=== PATIENT | male | born 1970 | race Native Hawaiian/Other Pacific Islander ===

== ENCOUNTER 2019-06-08 06:28 | Emergency (ER) | payer BC, SELFPAY ==
--- NOTE | ~2019-06-08 | CT_ITS ---
EXAMINATION: CT abdomen pelvis w con DATE: 06/08/2019 07:58 INDICATION: Epigastric pain, pancreatitis, cholecystitis. TECHNIQUE: Computed tomography (CT) of the abdomen and pelvis was performed with 100 mL Omnipaque-350 intravenous contrast. Automated exposure control and iterative reconstruction technique were employe d. The dose-length product was 1042.62 mGy-cm. COMPARISON: None FINDINGS: Minimal discoid atelectasis in the right lower lobe. Heart size is normal. No pericardial or pleural effusion. 1.4 cm hemangioma at the dome of the liver which is hypoenhancing with peripheral discontig uous puddling of contrast. There are couple additional subtle subcentimeter hypoenhancing lesions whi ch are too small to definitively characterize most likely representing additional hemangiomas. Gallbl adder, spleen, pancreas, bilateral adrenal glands and kidneys are normal. Bowels including the append ix are normal. Bladder is normal. Small bilateral fat-containing inguinal hernias. No free intraperit carney gas or fluid. No pathologically enlarged abdominal or pelvic lymphadenopathy. Mild to moderate bilateral hip osteoarthritis. Ankylosis across the anteroinferior aspect of the bilateral sacroiliac joints. IMPRESSION: 1. No acute intra-abdominal/pelvic process. Reviewed, dictated and finalized at location A. [employer]
[2019-06-08 06:38] VITALS: BP 138/98; PULSE 88; RESP 15; TEMP 36.3; O2SAT 98
--- NOTE | 2019-06-08 07:10 | ED.GENADULT ---
HPI - General Adult General Chief complaint: Skin/Abscess/Foreign Body Stated complaint: tomato stuck in esophagus Time Seen by Provider: 06/08/19 06:39 Source: patient History of Present Illness HPI narrative: 48 years old white male history of GERD, esophageal dilatation, abdominal hernia repair, does not smoke and drinks occasionally presents with epigastric pain after eating a piece of tomato yesterday noon. Patient believes that the tomato stuck at the lower esophagus. Patient been able to drink and eat after that. Pain is aching, sometimes radiating to the mid of his back, patient denies any fever, chills, nausea or vomiting. Patient had history of esophageal obstruction required EGD. Patient supposed to be on PPI which he does not take. Related Data Allergies Allergy/AdvReac Type Severity Reaction Status Date / Time Penicillins Allergy Unknown Unknown Verified 06/08/19 06:42 Review of Systems Review of Systems: Narrative: CONSTITUTIONAL: Denies fever, chills, or sweats. EYES: Denies visual changes, redness, or discharge. ENT: Denies rhinorrhea, congestion, sore throat, or otalgia. CARDIOVASCULAR: Denies chest pain, palpitations, or edema. RESPIRATORY: Denies cough or dyspnea. GASTROINTESTINAL: Epigastric pain GENITOURINARY: Denies dysuria or hematuria. SKIN: Denies rash or itching. MUSCULOSKELETAL: Denies back pain, joint pain, or myalgia. NEUROLOGIC: Denies headache, numbness, or weakness. PSYCHIATRIC: Denies anxiety or depression. PMFSH Social History Social History Smoking status: Never smoker Alcohol intake: never Exam Narrative: Exam Narrative: General appearance: Well-developed, well-nourished Skin: Normal color Head: Normocephalic, nontraumatic Eyes: Clear conjunctiva ENT: Oropharynx normal, ears normal, nose normal Neck: Supple, nontender Chest and respiratory: Airway patent, no respiratory distress, no accessory muscle use Heart: Regular rate/rhythm Abdomen: Soft, mild tenderness epigastric area, no guarding or rebound, no organomegaly, quiet bowel sounds Vascular: Normal peripheral pulses, normal capillary refill. Musculoskeletal: Normal range of motion, nontender back Neurologic: Alert and oriented ?3, [employer] is normal as tested, no gross motor deficit Course Course Emergency Course: Unchanged Vital Signs Vital signs: Vital Signs Temperature 36.3 C L 06/08/19 06:38 Pulse Rate 88 06/08/19 06:38 Respiratory Rate 15 06/08/19 06:38 Blood Pressure 138/98 H 06/08/19 06:38 Pulse Oximetry 98 06/08/19 06:38 Temperature 36.3 C L 06/08/19 06:38 Pulse Rate 88 06/08/19 06:38 Respiratory Rate 15 06/08/19 06:38 Blood Pressure 138/98 H 06/08/19 06:38 Pulse Oximetry 98 06/08/19 06:38 Medical Decision Making MDM Narrative Medical decision making narrative: Patient presents with epigastric pain after eating tomatoes yesterday noon. Possibly secondary to stretching the esophageal wall, partial obstruction, pancreatitis or cholecystitis. Labs, CT abdomen and pelvis ordered. Further plan to follow Differential Diagnosis Differential Diagnosis: Esophageal obstruction, GERD, pancreatitis, cholecystitis Vital Signs Vital Signs: Vital Signs Temperature 36.3 C L 06/08/19 06:38 Pulse Rate 88 06/08/19 06:38 Respiratory Rate 15 06/08/19 06:38 Blood Pressure 138/98 H 06/08/19 06:38 Pulse Oximetry 98 06/08/19 06:38 Temperature 36.3 C L 06/08/19 06:38 Pulse Rate 88 06/08/19 06:38 Respiratory Rate 15 06/08/19 06:38 Blood Pressure 138/98 H 06/08/19 06:38 Pulse Oximetry 98 06/08/19 06:38 Critical Care Time Critical C
[2019-06-08 07:36] LABS: Basophils Percent Auto 0.5 % (0.2-1.2); Eosinophils Absolute Auto 0.3 K/mm3 (0-0.3); Eosinophils Percent Auto 3.2 % (0-4.4); Hematocrit 49.1 % (42.0-52.0); Hemoglobin 16.4 g/dL (14.0-18.0); Immature Granulocyte Absolute 0.05 K/mm3 (0.00-0.031); Immature Granulocyte Percent A 0.6 % (0-0.5); Lymphocytes Absolute Auto 2.27 K/mm3 (0.9-3.2); Lymphocytes Percent Auto 28.3 % (18.3-44.2); Mean Corpuscular HGB Conc 33.4 g/dl (32-36); Mean Corpuscular Hemoglobin 26.9 pg (26-34); Mean Corpuscular Volume 80.6 fl (80-100); Monocytes Absolute Auto 0.6 K/mm3 (0.1-0.6); Monocytes Percent Auto 7.8 % (2.6-8.5); Neutrophils Absolute Auto 4.8 K/mm3 (1.3-6.7); Neutrophils Percent Auto 59.6 % (45.5-73.1); Platelet Count Result 257 k/mm3 (150-375); Red Blood Count 6.09 M/mm3 (4.6-6.20); Red Cell Distribution Width 12.2 % (11.5-14.5)
[2019-06-08 07:39] LABS: Add Urine Microscopic? YES; Appearance Urine Clear (Clear); Bilirubin Urine Negative (Negative); Blood Urine 1+ (Negative); Color Urine Straw (Yellow); Glucose Urine UA Negative (Negative); Ketones Urine Negative (Negative); Leukocyte Esterase Ur Negative LEU/UL (Negative); Mucus Urine Rare /lpf; Nitrate Urine Negative (Negative); Protein Urine Negative (Negative); RBC Urine 0-2 /hpf (0-2); Specific Grav Ur 1.008 (1.001-1.035); Urobilinogen Urine Negative mg/dL (<2.0); WBC Urine 0-3 /hpf
[2019-06-08 07:48] LABS: Alanine Aminotransferase 24 U/L (4-50); Albumin Level 4.3 g/dL (3.5-5.1); Alkaline Phosphatase 61 U/L (38-126); Aspartate Amino Transferase 25 U/L (17-59); Bilirubin,Total 0.8 mg/dL (0.2-1.3); Blood Urea Nitrogen 13 mg/dL (9-20); Calcium 9.2 mg/dL (8.4-10.2); Carbon Dioxide 27 mmol/L (22-30); Chloride 98 mmol/L (98-107); Estimated Glomerular Filt Rate > 60; Glucose 98 mg/dL (75-110); Lipase 189 U/L (23-300); Sodium 136 mmol/L (137-145)
[2019-06-08 09:02] VITALS: BP 129/78; PULSE 71; RESP 17; O2SAT 100
== END 2019-06-08 09:02 | disposition home or self-care (01) ==
PROVIDERS: Emergency Provider Emergency Medicine; PCP Family Medicine
DX: R10.13 Epigastric pain (principal)
CPT/HCPCS: 36415; 74177; 80053; 81001; 83690; 85025; 99284; Q9967

== ENCOUNTER 2025-03-15 00:28 | Day surgery (SDC) | payer BC, SELFPAY ==
[2025-03-01 10:05] VITALS: BMI 35.2
[2025-03-15 06:56] VITALS: BP 110/82; PULSE 86; RESP 18; TEMP 36.1; O2SAT 97; BMI 36.4
[2025-03-15] MEDS: LACTATED RINGERS 1,000 ML 150 ML IV CONT (07:04)
--- NOTE | 2025-03-15 07:34 | P.PNAN_ITS ---
Anes - Initial Pre Proc Eval Procedure: Operation Date: 03/15/25 08:00 Proposed Procedures p Screening Colonoscopy - Lester Hopper MD Date/Time: 03/15/25 07:34 Surgeon: Lester Hopper MD Pre Op Diagnosis: Encounter for screening for malignant neoplasm of Patient Data Age: 54 Gender: M Height: 1.78 m Weight: 115.3 kg Last Vital Signs Temp 97 F L 03/15/25 06:56 Pulse 86 03/15/25 06:56 Resp 18 03/15/25 06:56 BP 110/82 03/15/25 06:56 Pulse Ox 97 03/15/25 06:56 O2 Del Method Room Air 03/15/25 06:56 Allergies Allergy/AdvReac Type Severity Reaction Status Date / Time Penicillins Allergy Unknown Unknown Verified 03/15/25 06:56 Home Medications ?Medication ?Instructions ?Recorded ?Confirmed ?Type No Home Medications 03/01/25 03/01/25 H istory Patient hx anesthesia problems: none Family hx anesthesia problems: none Results Review: All pre-operative results and documents have been reviewed as part of the pre- operative evaluation. [facility] Past Medical History Medical History Seasonal allergic rhinitis due to pollen Encounter for general health examination Social History Social History Smoking status: Never smoker Alcohol intake: never Substance use: never Substance use type: does not use Living arrangements: with family Spiritual care concerns: No Anes - Eval Final PreProcedure Day of Procedure 03/15/25 07:34 Patient weight: obese Lungs: normal air movement Airway: Mallampati scale class II Neurological: alert and oriented Last oral intake: >/= 8 hours ASA classification: II Emergent: no Anesthetic plan: proceed Anesthesia type and monitoring: general GIVS and standard monitoring Results Review: All pre-operative results and documents have been reviewed as part of the pre- operative evaluation. BMI 36, active coaching soccer, no cp or sob. Informed Consent: The patient's anesthetic plan and its attendant risks and benefits were discussed with the patient/family/POA. Questions were solicited and answers provided to the satisfaction of the patient/family/POA.
--- NOTE | 2025-03-15 07:59 | P.HP_ITS ---
History of Present Illness History of Present Illness Consent: Risks, benefits, and alternatives have been discussed and questions answered. Patient agrees to proceed with procedure. Chief complaint: Encounter for screening for malignant neoplasm of Narrative: Oscar Evans is a 54 year old male here for first screening colonoscopy Review of Systems Review of Systems: All systems reviewed & are unremarkable except as noted in HPI and below PMFSH Past Medical History Medical History (Updated 03/15/25 @ 08:00 by Lester Hopper MD) Colon cancer screening Seasonal allergic rhinitis due to pollen Encounter for general health examination Social History Social History Smoking status: Never smoker Alcohol intake: never Substance use: never Substance use type: does not use Living arrangements: with family Spiritual care concerns: No Meds Home Medications and Allergies Home Medications ?Medication ?Instructions ?Recorded ?Confirmed ?Type No Home Medications 03/01/25 03/01/25 H istory Allergies Allergy/AdvReac Type Severity Reaction Status Date / Time Penicillins Allergy Unknown Unknown Verified 03/15/25 06:56 Vital Signs Vital Signs - 24 hr 03/15/25 06:56 Temperature 97 F L Pulse Rate 86 Respiratory Rate 18 Blood Pressure 110/82 Pulse Oximetry 97 Oxygen Delivery Room Air Exam Const: General: comfortable and no acute distress HENMT: Face/Nose/Sinus: Normal nares present Eyes: General: appearance normal, both eyes and all related structures Neck: Neck: no JVD Resp: Auscultation: clear to auscultation bilaterally Cardio: Rate: regular rate Rhythm: regular rhythm GI: Inspection: non-distended GI Palp: Yes Soft to palpation Skin: General skin exam: normal color Extrem: General: normal to inspection Psych: Mental Status: mental status grossly normal Assessment and Plan Assessment and plan (1) Colon cancer screening: Code(s): Z12.11 - Encounter for screening for malignant neoplasm of colon Status: Acute Assessment and Plan: colonoscopy
[2025-03-15 08:11] VITALS: BP 105/80; PULSE 77; RESP 24; O2SAT 98
[2025-03-15 08:21] VITALS: BP 106/76; PULSE 74; RESP 16; O2SAT 99
[2025-03-15 08:31] VITALS: BP 109/80; PULSE 71; RESP 17; O2SAT 97
== END 2025-03-15 08:34 | disposition home or self-care (01) ==
PROVIDERS: PCP Family Medicine; Visit Provider Internal Medicine Gastroenterology
PROC: 0DJD8ZZ Inspection of Lower Intestinal Tract, Via Natural or Artificial Opening Endoscopic (ICD-10-PCS; CPT 45378; principal; 2025-03-15 08:00)
DX: Z12.11 Encounter for screening for malignant neoplasm of colon (principal); E66.9 Obesity, unspecified; Z68.36 Body mass index [BMI] 36.0-36.9, adult
CPT/HCPCS: 45378; J2003; J2704; J7120